=== PATIENT | female | born 1955 | race Caucasian/White ===

== ENCOUNTER 2020-06-14 14:56 | Emergency (ER) | payer OTHER ==
[~2020-06-14] VITALS: Ht 167.6 cm; Wt 74.8 kg
[~2020-06-14 14:56] MED LIST: ATIVAN1 MG PO; DOXYCYCLINE 10100 MG PO; HUMALOG100 UNIT/1 SUBQ; MIRTAZAPINE15 M2 PO; NEURONTIN300 MG PO; NORCO 5-325 TA1 EACH PO; NOVOLOG100 UNIT/1 SUBQ; PRINIVIL10 MG PO
[2020-06-14] MEDS ORDERED: DULOXETINE HCL60 MG PO (15:00)
[2020-06-14 15:36] LABS: ABSOLUTE NEUTROPHILS 9.6 thou/uL (1.4-8.2); BASOPHILS 0.2 % (0.0-2.0); EOSINOPHILS 1.1 % (0.0-3.0); HEMOGLOBIN 16.2 gm/dL (12.0-15.0); LYMPHOCYTES 23.6 % (24.0-44.0); MCH 30.2 pg (26.0-34.0); MCHC 33.1 g/dL (28.0-37.0); MCV 91.3 fL (80.0-100.0); MONOCYTES 4.2 % (1.0-8.0); PLATELET COUNT 274 thou/uL (150-400); POLYS 70.9 % (36.0-66.0); RBC 5.36 mil/uL (4.20-5.00); RDW 13.4 % (10.5-14.5); WBC 13.5 thou/uL (4.0-11.0)
[2020-06-14 15:58] LABS: CALCIUM 9.9 mg/dL (8.5-10.1); CREATININE 0.8 mg/dL (0.6-1.0); POTASSIUM 3.9 mmol/L (3.5-5.1); TOTAL BILIRUBIN 0.4 mg/dL (0.2-1.0); TOTAL PROTEIN 7.3 g/dL (6.4-8.2)
[2020-06-14] MEDS ORDERED: PREDNISONE 20 M20 MG PO (20:44)
[2020-06-14] MEDS ORDERED: VALIUM2 MG PO (20:44)
[2020-06-14 20:58] VITALS: BP 172/132
--- NOTE | 2020-06-15 07:18 | EKG ---
[facility] [place] [address] ELECTROCARDIOGRAM REPORT Name: MICKEY BENAVIDES Room #: [facility]P [facility]#: [id number] Admission: 06/14/20 Attend Phys: Discharge: 06/14/20 Date of : 53 Report #: [id number] THIS REPORT FOR: cc: Devin Agee MD, Bernard O. 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: [facility] : 1955 Requested By: Nesha Doan Order Number: [id number] MD: Ramana Lamas Measurements Intervals [place] Rate: 92 P: 43 [place]: 152 QRS: -24 QRSD: 81 T: 84 QT: 352 QTc: 436 Interpretive Statements Sinus rhythm Left atrial enlargement Left ventricular hypertrophy Nonspecific T abnormalities, lateral leads Baseline wander in lead(s) V4 Compared to ECG 02/05/2005 13:07:07 Left ventricular hypertrophy now present T-wave abnormality now present Sinus tachycardia no longer present Electronically Signed On 06-15-2020 7:18:44 HAND INSPECTOR by Ramana Lamas [email or web address] <ELECTRONICALLY SIGNED> By: Ramana Lamas MD, FACC 06/15/20717 42 42 Ramana Lamas MD, [facility] /EPI
== END 2020-06-14 21:05 | disposition home or self-care (01) ==
LOC: ER 14:56
PROVIDERS: Emergency Medicine
DX: R53.1 Weakness (principal); E11.9 Type 2 diabetes mellitus without complications; J45.909 Unspecified asthma, uncomplicated; F17.210 Nicotine dependence, cigarettes, uncomplicated; Z79.4 Long term (current) use of insulin; Z79.899 Other long term (current) drug therapy